=== PATIENT | male | born 1995 | race African-American/Black ===

== ENCOUNTER 2022-11-20 21:52 | Emergency (ER) | payer OTHER ==
[~2022-11-20] VITALS: Ht 185.4 cm; Wt 82.0 kg
[2022-11-20 21:58] VITALS: TEMP 97.5; O2SAT 100
[2022-11-20] MEDS ORDERED: KETOROLAC 30MG/ML VIAL IV STA (22:43)
[2022-11-20] MEDS ORDERED: SODIUM CHLORIDE 0.9% 1,000 ML IV ONE (22:45)
[2022-11-20] MEDS ORDERED: MORPHINE SULFATE 4 MG/ML CPJ (NOT FOR IM USE) IV ONE (22:45)
[2022-11-20 22:57] LABS: BASOPHILS % 0.4 % (0.0-2.0); EOSINOPHILS % 0.1 % (0.0-5.0); HEMATOCRIT. 41.7 % (42.0-52.0); HEMOGLOBIN. 13.9 g/dL (14.0-18.0); LYMPHOCYTES % 10.1 % (20.0-50.0); MEAN CORPUSCULAR HGB CONC 33.3 g/dL (31.0-37.0); MEAN CORPUSCULAR VOLUME 84.1 fL (80.0-94.0); MEAN PLATELET VOLUME 9.9 fl (7.4-10.4); MONOCYTES % 3.9 % (2.0-8.0); NEUTROPHILS % 85.5 % (40.0-76.0); PLATELET 258 x1000/uL (130-400); RED BLOOD CELL COUNT 4.96 mill/uL (4.7-6.1); RED CELL DISTRIBUTION WIDTH 12.6 % (11.6-14.6); WHITE BLOOD COUNT 15.9 x1000/uL (4.5-11.0)
[2022-11-20 23:09] LABS: CHLORIDE 111 mEq/L (98-107); INDEX HEMOLYSI 1 (1-3); INDEX ICTERIC 1 (1-4); INDEX LIPEMIC 1 (1-3); POTASSIUM 3.8 mEq/L (3.5-5.1); SODIUM 139 mEq/L (136-145)
[2022-11-20 23:11] LABS: ALBUMIN 4.5 g/dL (3.4-5.0); CALCIUM 9.3 mg/dL (8.5-10.1); GLUCOSE 113 mg/dL (70-105); UREA NITROGEN BLOOD 20 mg/dL (7-21)
[2022-11-20 23:14] LABS: ALANINE AMINOTRANSFERASE 31 IU/L (13-61); ASPARTATE AMINOTRANSFERASE 24 IU/L (15-37); CARBON DIOXIDE 24 mEq/L (21-32)
[2022-11-20 23:16] LABS: BILIRUBIN TOTAL 0.5 mg/dL (0.1-1.0); CREATININE 1.1 mg/dL (0.6-1.3); PROTEIN TOTAL 8.3 g/dL (6.0-8.3)
[2022-11-20 23:25] VITALS: BP 117/68; PULSE 90; RESP 16
[2022-11-21 01:57] LABS: CLARITY URINE CLEAR (CLEAR); COLOR URINE YELLOW (YELLOW); GLUCOSE URINE NEGATIVE (NEGATIVE); KETONES URINE 2+ (NEGATIVE); LEUKOCYTE ESTERASE URINE NEGATIVE (NEGATIVE); NITRITE URINE NEGATIVE (NEGATIVE); OCCULT BLOOD URINE 1+ (NEGATIVE); PROTEIN URINE TRACE (NEGATIVE); SPECIFIC GRAVITY URINE 1.028 (1.005-1.030)
[2022-11-21 02:34] LABS: WBC URINE 0-2 /hpf (0-2)
[2022-11-21 02:35] LABS: BACTERIA URINE NONE SEEN; SQUAMOUS EPITHELIAL CELL URINE NONE SEEN /lpf (RARE/1+)
[2022-11-21] MEDS ORDERED: TAMS-11 MT (02:37)
[2022-11-21] MEDS ORDERED: IBUP-2028 MT (02:37)
[2022-11-21] MEDS ORDERED: MORP15TA67 MT (02:37)
[2022-11-21] MEDS ORDERED: TOPUD PO (02:37)
== END 2022-11-21 03:06 | disposition home or self-care (01) ==
LOC: ER 21:52
DX: N23 Unspecified renal colic (principal); Z79.899 Other long term (current) drug therapy
CPT/HCPCS: 80053; 83690; 85025; 36415; 74176; 96361; 96374; 96375; 99285; 81003; J1885; J2270; J7030; Z7610